=== PATIENT | female | born 1980 | race African-American/Black ===

== ENCOUNTER 2016-11-24 00:05 | Inpatient (IN) | payer BC, MEDICAID ==
[~2016-11-24] VITALS: Ht 162.6 cm; Wt 78.5 kg
[2016-11-24] MEDS ORDERED: LR 1,000 ML IV SCH ×2 (00:10→22:21)
[2016-11-24] MEDS ORDERED: OXYTOCIN/NORMAL SALINE 1,000 ML IV SCH (00:10)
[2016-11-24] MEDS ORDERED: NALBUPHINE HCL 10 MG/ML AMP IVP PRN (00:15)
[2016-11-24] MEDS ORDERED: TERBUTALINE SULFATE 1 MG/ML VIAL SUBCUT ONE (00:15)
[2016-11-24 01:48] LABS: BASOPHILS % (AUTO) 0.3 % (0.0-2.0); EOSINOPHILS % (AUTO) 0.3 % (0.0-4.0); HEMATOCRIT 37.9 % (36-48); HEMOGLOBIN 13.1 g/dL (12.0-16.0); LYMPHOCYTES # (AUTO) 1.6 K/uL (1.0-5.5); LYMPHOCYTES % (AUTO) 11.9 % (20.5-51.5); MEAN CORPUSCULAR HEMOGLOBIN 33 pg (27-31); MEAN CORPUSCULAR HGB CONC 35 % (32-36); MEAN CORPUSCULAR VOLUME 96 fL (79.0-98.0); MONOCYTES # (AUTO) 0.6 K/uL (0.0-1.0); MONOCYTES % (AUTO) 4.9 % (1.7-9.3); NEUTROPHILS % (AUTO) 82.6 % (40.0-70.0); PLATELET COUNT (AUTO) 240 K/uL (130-430); RED BLOOD CELL COUNT(AUTO) 3.96 MIL/uL (4.2-6.2); RED CELL DISTRIBUTION WIDTH 12.2 % (9.0-15.0); WHITE BLOOD COUNT (AUTO) 13.2 K/uL (4.8-10.8)
[2016-11-24] MEDS ORDERED: fentaNYL CITRATE/PF 100 MCG/2 ML AMP ONE (07:47)
[2016-11-24] MEDS ORDERED: FENT2mCg/mL-ROPIVA0.2%/NS EPID 150 ML EP ONE ×2 (07:48→19:01)
[2016-11-24] MEDS ORDERED: MINERAL OIL 30 ML UDC PO ONE (15:00)
[2016-11-24 18:29] LABS: CALCIUM 9.4 mg/dL (8.4-11.0); CREATININE 1.15 mg/dL (0.55-1.30)
[2016-11-24] MEDS ORDERED: OXYTOCIN 10 UNIT/ML VIAL IV ONE (21:25)
[2016-11-24] MEDS ORDERED: NS IRRIG SOLN 1000 ML IR ONE (21:25)
[2016-11-24] MEDS ORDERED: LR 1,000 ML IV.SOLN IV ONE ×2 (21:25)
[2016-11-24] MEDS ORDERED: LIDOCAINE MPF 2% 5mL VIAL INJ ONE ×2 (21:25)
[2016-11-24] MEDS ORDERED: MIDAZOLAM HCL 5 MG/5 ML VIAL IVP ONE ×2 (21:25)
[2016-11-24] MEDS ORDERED: METHYLERGONOVINE MALEATE 0.2 MG/ML AMP IM ONE ×2 (21:25)
[2016-11-24 22:26] VITALS: BP_SYST 117
[2016-11-24] MEDS ORDERED: ONDANSETRON HCL 4 MG/2 ML VIAL IVP PRN (22:30)
[2016-11-24] MEDS ORDERED: MORPHINE 2 MG/ML INJ. SYRINGE IVP PRN ×3 (22:30)
[2016-11-24] MEDS ORDERED: ONDANSETRON HCL 4 MG/2 ML VIAL ONE (22:42)
[2016-11-24 23:16] LABS: HEMATOCRIT 35.6 % (36-48); HEMOGLOBIN 12.2 g/dL (12.0-16.0)
[2016-11-25] MEDS ORDERED: ceFAZolin SODIUM 1 GM VIAL ONE (06:14)
[2016-11-25] MEDS: ceFAZolin SODIUM 1 GM in D5W 50 ML IV SCH ×3 (06:25→21:32)
[2016-11-25] MEDS ORDERED: LR 500 ML IV ONE (07:00)
[2016-11-25] MEDS: IBUPROFEN 600 MG TABLET PO SCH ×4 (08:00→23:45)
[2016-11-25] MEDS ORDERED: OXYTOCIN/NORMAL SALINE 1,000 ML IV ONE (10:16)
[2016-11-25] MEDS ORDERED: LANOLIN 7 GM OINT. TP PRN (10:30)
[2016-11-25] MEDS ORDERED: DERMOPLAST SPRAY TP PRN (10:30)
[2016-11-25] MEDS ORDERED: DOCUSATE SODIUM 100 MG CAPSULE PO PRN (10:30)
[2016-11-25] MEDS ORDERED: GLYCERIN/WITCH HAZEL (TUCKS PADS) TP PRN (10:30)
[2016-11-25] MEDS ORDERED: ANUSOL 1 EA SUPP.RECT (PREPARATION H) RC PRN (10:30)
[2016-11-25] MEDS ORDERED: HYDROCORTISONE 0.5%, 28.35 GM TOPICAL CREAM TP PRN (10:30)
[2016-11-25] MEDS ORDERED: METHYLERGONOVINE MALEATE 0.2 MG TABLET PO PRN (10:30)
[2016-11-25 11:13] LABS: HEMATOCRIT 28.8 % (36-48); HEMOGLOBIN 9.8 g/dL (12.0-16.0)
[2016-11-26] MEDS: IBUPROFEN 600 MG TABLET PO SCH ×4 (06:16→23:32)
--- NOTE | 2016-11-26 18:17 | NUR ---
FUSION ANALYST faxed pt's discharge order [phone] Theresa Toure ([phone]).
[2016-11-27] MEDS: IBUPROFEN 600 MG TABLET PO SCH ×2 (06:03→12:23)
== END 2016-11-27 13:00 | disposition home or self-care (01) | DRG 767 ==
LOC: SPU 00:05
PROVIDERS: ADMIT Obstetrics & Gynecology; ATTEND Obstetrics & Gynecology
PROC: 10D17ZZ Extraction of Products of Conception, Retained, Via Natural or Artificial Opening (ICD-10-PCS; 2016-11-24)
PROC: 0KQM0ZZ Repair Perineum Muscle, Open Approach (ICD-10-PCS; 2016-11-24)
PROC: 3E033VJ Introduction of Other Hormone into Peripheral Vein, Percutaneous Approach (ICD-10-PCS; 2016-11-24)
PROC: 3E0S3CZ (ICD-10-PCS; 2016-11-24)
PROC: 00HU33Z Insertion of Infusion Device into Spinal Canal, Percutaneous Approach (ICD-10-PCS; 2016-11-24)
PROC: 10D07Z6 Extraction of Products of Conception, Vacuum, Via Natural or Artificial Opening (ICD-10-PCS; principal; 2016-11-24 21:00)
DX: O48.0 Post-term pregnancy (principal); O76 Abnormality in fetal heart rate and rhythm complicating labor and delivery; O69.81X0 Labor and delivery complicated by cord around neck, without compression, not applicable or unspecified; Z3A.40 40 weeks gestation of pregnancy; Z37.0 Single live birth; O70.1 Second degree perineal laceration during delivery; O09.513 Supervision of elderly primigravida, third trimester
CPT/HCPCS: 36415; 80048; 81002-TC; 85018-TC; 85025; 86592; 86886; 86900; 86901; 86920; 88305; 88307; 94760; J0690; J2001; J2210; J2250; J2270; J2405; J2590; J3010; J7060; J7120

== ENCOUNTER 2017-10-24 17:00 | Day surgery (SDC) | payer BC, MEDICAID ==
[~2017-10-24] VITALS: Ht 162.6 cm; Wt 68.0 kg
[2017-10-24 17:00] VITALS: BP_SYST 136
[2017-10-24] MEDS ORDERED: LR 500 ML IV ONE (17:30)
[2017-10-24] MEDS ORDERED: NACL 0.9% 1,000 ML IV ONE (17:30)
[2017-10-24 17:31] LABS: BASOPHILS % (AUTO) 0.3 % (0.0-2.0); EOSINOPHILS # (AUTO) 0.1 K/uL (0.0-0.4); EOSINOPHILS % (AUTO) 1.7 % (0.0-4.0); HEMATOCRIT 40.2 % (36-48); HEMOGLOBIN 13.9 g/dL (12.0-16.0); LYMPHOCYTES # (AUTO) 2.1 K/uL (1.0-5.5); LYMPHOCYTES % (AUTO) 24.2 % (20.5-51.5); MEAN CORPUSCULAR HEMOGLOBIN 32 pg (27-31); MEAN CORPUSCULAR HGB CONC 35 % (32-36); MEAN CORPUSCULAR VOLUME 93 fL (79.0-98.0); MONOCYTES # (AUTO) 0.5 K/uL (0.0-1.0); MONOCYTES % (AUTO) 5.6 % (1.7-9.3); NEUTROPHILS # (AUTO) 6.1 K/uL (1.8-7.7); NEUTROPHILS % (AUTO) 68.2 % (40.0-70.0); PLATELET COUNT (AUTO) 230 K/uL (130-430); RED BLOOD CELL COUNT(AUTO) 4.33 MIL/uL (4.2-6.2); RED CELL DISTRIBUTION WIDTH 12.2 % (9.0-15.0); WHITE BLOOD COUNT (AUTO) 8.8 K/uL (4.8-10.8)
[2017-10-24 17:33] LABS: BILIRUBIN,URINE NEGATIVE (NEGATIVE); BLOOD, URINE 3+ (NEGATIVE); CLARITY/URINE CLOUDY (CLEAR); COLOR,URINE ORANGE (YELLOW); GLUCOSE,URINE NEGATIVE (NEGATIVE); KETONES,URINE NEGATIVE (NEGATIVE); LEUKOCYTE ESTERASE ,URINE 1+ (NEGATIVE); NITRITE, URINE NEGATIVE (NEGATIVE); PROTEIN URINE NEGATIVE (NEGATIVE); UROBILINOGEN,URINE 0.2 (0.2-1.0)
[2017-10-24 17:39] LABS: BACTERIA,URINE FEW /HPF (None Seen); RBC,URINE >100 /HPF (0-3); WBC,URINE 0-3 /HPF (0-3)
[2017-10-24 17:54] LABS: CALCIUM 9.8 mg/dL (8.4-11.0); CREATININE 0.75 mg/dL (0.55-1.30); POTASSIUM 4.2 mmol/L (3.5-5.1)
[2017-10-24] MEDS ORDERED: fentaNYL CITRATE/PF 100 MCG/2 ML AMP IVP PRN ×2 (18:00)
[2017-10-24] MEDS ORDERED: ONDANSETRON HCL 4 MG/2 ML VIAL IVP PRN (18:00)
[2017-10-24 18:07] LABS: PROTHROMBIN TIME 9.9 SECS (9.5-12.5)
[2017-10-24 18:18] LABS: TOTAL BILIRUBIN 0.3 mg/dL (0.0-1.0)
[2017-10-24] MEDS ORDERED: fentaNYL CITRATE/PF 100 MCG/2 ML AMP ONE (20:38)
[2017-10-24 21:31] VITALS: BP_SYST 133
[2017-10-24] MEDS ORDERED: OXYCODONE/ACETAMINOPHEN 5-325 TABLET PO PRN (22:00)
== END 2017-10-24 23:25 | disposition home or self-care (01) ==
LOC: SED 17:00 → SMU 18:15 → SDS 18:19 → SMU 18:21 → SDS 23:25
PROVIDERS: ATTEND Obstetrics & Gynecology
DX: O00.102 Left tubal pregnancy without intrauterine pregnancy (principal); N80.3 Endometriosis of pelvic peritoneum; Z85.43 Personal history of malignant neoplasm of ovary; J30.9 Allergic rhinitis, unspecified; Z87.820 Personal history of traumatic brain injury; Z87.828 Personal history of other (healed) physical injury and trauma; J34.3 Hypertrophy of nasal turbinates; Z68.25 Body mass index [BMI] 25.0-25.9, adult; G43.909 Migraine, unspecified, not intractable, without status migrainosus; J34.89 Other specified disorders of nose and nasal sinuses; Z79.899 Other long term (current) drug therapy
CPT/HCPCS: 36415; 59151; 71045; 80053; 81000; 83690; 84702; 85025; 85610; 86886; 86900; 86901; 87086; 88305; C1727; J3010